=== PATIENT | male | born 1975 | race Two or more races ===

== ENCOUNTER 2018-08-26 05:12 | Emergency (ER) | payer SELFPAY ==
[~2018-08-26] VITALS: Ht 165.1 cm; Wt 74.8 kg
[2018-08-26] MEDS ORDERED: MORPHINE SULFATE 4 MG/ML SYR/VIAL IV ONE (06:00)
[2018-08-26] MEDS ORDERED: ONDANSETRON HCL 4 MG/2 ML VIAL IV ONE (06:00)
[2018-08-26] MEDS ORDERED: cloNIDine HCL 0.1 MG TAB PO ONE (11:00)
[2018-08-26 12:50] VITALS: BP 120/67
== END 2018-08-26 13:15 | disposition home or self-care (01) ==
LOC: EDSEX 05:12 → ER 05:12 → EDBD 05:12 → ER 13:15
DX: S22.42XA Multiple fractures of ribs, left side, initial encounter for closed fracture (principal); S96.912A Strain of unspecified muscle and tendon at ankle and foot level, left foot, initial encounter; V49.59XA Passenger injured in collision with other motor vehicles in traffic accident, initial encounter; Y93.89 Activity, other specified; Y99.8 Other external cause status; Y92.89 Other specified places as the place of occurrence of the external cause
CPT/HCPCS: 71045; 72125; 73600; 74176; 94761; 96374; 96375; 99284; J2270; J2405